=== PATIENT | female | born 1950 | race Caucasian/White ===

== ENCOUNTER → 2016-06-22 | Outpatient (CLI) | payer MEDICARE ==
[~2016-06-22] MED LIST: ATOR40TA PO; CALC500T47 PO; CHOL10002 PO; FLUO40CA9 PO; GABA400C PO; LISI-468 PO; MAGN300C PO; MELO15TA6 PO; MULT-26 PO; NIFE60TA2 PO; OMEP20CA9 PO; SILD20TA PO
== END | disposition home or self-care (01) ==
LOC: CFH 10:32
PROVIDERS: ATTEND Internal Medicine
DX: K76.0 Fatty (change of) liver, not elsewhere classified (principal); R94.5 Abnormal results of liver function studies
CPT/HCPCS: 76705

== ENCOUNTER → 2016-11-28 | Outpatient (CLI) | payer MEDICARE ==
[~2016-11-28] MED LIST changes: -CALC500T47 PO; +CALC500T51 PO
== END | disposition home or self-care (01) ==
LOC: CVU 11:22
PROVIDERS: ATTEND Internal Medicine Cardiovascular Disease
DX: I07.1 Rheumatic tricuspid insufficiency (principal); I31.3 Pericardial effusion (noninflammatory); I10 Essential (primary) hypertension
CPT/HCPCS: 93306; 94060; 94726; 94729

== ENCOUNTER → 2017-03-01 | Outpatient (CLI) | payer MEDICARE | END | disposition home or self-care (01) | LOC: CFH 09:48 | PROVIDERS: ATTEND Internal Medicine | DX: Z12.31 Encounter for screening mammogram for malignant neoplasm of breast (principal) | CPT/HCPCS: G0202 ==

== ENCOUNTER → 2017-04-24 | Outpatient (CLI) | payer MEDICARE | LOC: CFH 10:44 | PROVIDERS: ATTEND Internal Medicine | DX: Z13.820 Encounter for screening for osteoporosis (principal); M85.88 Other specified disorders of bone density and structure, other site; N95.1 Menopausal and female climacteric states | CPT/HCPCS: 77080 ==

== ENCOUNTER → 2018-03-20 | Outpatient (CLI) | payer MEDICARE | END | disposition home or self-care (01) | LOC: CFH 09:41 | PROVIDERS: ATTEND Internal Medicine Cardiovascular Disease | DX: I34.8 Other nonrheumatic mitral valve disorders (principal); I31.3 Pericardial effusion (noninflammatory); E78.5 Hyperlipidemia, unspecified; I10 Essential (primary) hypertension | CPT/HCPCS: 93306 ==

== ENCOUNTER → 2018-05-21 | Outpatient (CLI) | payer MEDICARE | END | disposition home or self-care (01) | LOC: CFH 11:04 | PROVIDERS: ATTEND Internal Medicine | DX: Z12.31 Encounter for screening mammogram for malignant neoplasm of breast (principal) | CPT/HCPCS: 77067 ==

== ENCOUNTER 2018-08-02 10:55 | Outpatient (CLI) | payer MEDICARE | END 2018-08-02 23:59 | disposition home or self-care (01) | LOC: CFH 10:55 | PROVIDERS: ATTEND Internal Medicine Rheumatology | DX: M17.12 Unilateral primary osteoarthritis, left knee (principal); M25.511 Pain in right shoulder; M34.9 Systemic sclerosis, unspecified ==

== ENCOUNTER 2018-08-20 09:57 | Outpatient (CLI) | payer MEDICARE | END 2018-08-20 23:59 | disposition home or self-care (01) | LOC: CFH 09:57 | PROVIDERS: ATTEND Internal Medicine Rheumatology | DX: J84.9 Interstitial pulmonary disease, unspecified (principal) | CPT/HCPCS: 71250 ==

== ENCOUNTER 2018-08-21 14:09 | Outpatient (CLI) | payer MEDICARE | END 2018-08-21 23:59 | disposition home or self-care (01) | LOC: CARD 14:09 | PROVIDERS: ATTEND Internal Medicine Rheumatology | DX: J84.9 Interstitial pulmonary disease, unspecified (principal); I27.0 Primary pulmonary hypertension | CPT/HCPCS: 94060; 94726; 94729 ==

== ENCOUNTER 2019-08-26 09:44 | Outpatient (CLI) | payer MEDICARE | END 2019-08-26 23:59 | disposition home or self-care (01) | LOC: CFH 09:44 | PROVIDERS: ATTEND Internal Medicine Rheumatology | DX: M81.0 Age-related osteoporosis without current pathological fracture (principal); M85.89 Other specified disorders of bone density and structure, multiple sites | CPT/HCPCS: 77080 ==

== ENCOUNTER 2019-09-22 12:23 | Outpatient (CLI) | payer MEDICARE | END 2019-09-22 23:59 | disposition home or self-care (01) | LOC: CARD 12:23 | PROVIDERS: ATTEND Internal Medicine Rheumatology | DX: M34.9 Systemic sclerosis, unspecified (principal); J84.9 Interstitial pulmonary disease, unspecified | CPT/HCPCS: 94060; 94726; 94729 ==

== ENCOUNTER → 2020-03-25 | Outpatient (CLI) | payer MEDICARE | END | disposition home or self-care (01) | LOC: CFH 14:30 | PROVIDERS: ATTEND Internal Medicine Cardiovascular Disease | DX: I08.1 Rheumatic disorders of both mitral and tricuspid valves (principal); I11.9 Hypertensive heart disease without heart failure | CPT/HCPCS: 93306 ==

== ENCOUNTER → 2020-09-03 | Outpatient (CLI) | payer MEDICARE | END | disposition home or self-care (01) | LOC: CFH 08:13 | PROVIDERS: ATTEND Internal Medicine Rheumatology | DX: K22.8 Other specified diseases of esophagus (principal); M34.9 Systemic sclerosis, unspecified; J84.9 Interstitial pulmonary disease, unspecified | CPT/HCPCS: 71250 ==

== ENCOUNTER 2020-11-05 11:08 | Outpatient (CLI) | payer MEDICARE ==
[2020-11-05] MEDS ORDERED: VIT1CAPS42 PO (11:50)
[2020-11-05] MEDS ORDERED: LOSA25TA25 PO (11:50)
[2020-11-05 12:16] LABS: BASOPHILS % (AUTO) 1 % (0-1); EOSINOPHILS % (AUTO) 2 % (1-7); LYMPHOCYTES % (AUTO) 21 % (22-44); MEAN CORPUSCULAR HEMOGLOBIN 31.3 pg (27.0-34.8); MEAN CORPUSCULAR HGB CONC 33.4 g/dL (32.4-35.8); MEAN PLATELET VOLUME 8.3 fL (7.4-10.4); MONOCYTES % (AUTO) 8 % (2-9); NEUTROPHILS % (AUTO) 68 % (42-75); PLATELET COUNT 320 x10^3/uL (130-400); RED BLOOD COUNT 4.62 x10^6/uL (3.82-5.3); RED CELL DISTRIBUTION WIDTH 14.8 % (9.6-15.2)
[2020-11-05 12:16] LABS: MICROSCOPIC NOT IND
[2020-11-05 12:26] LABS: ALANINE AMINOTRANSFERASE 23 U/L (12-78); ANION GAP 9 mmol/L (5-15); CHLORIDE 105 mmol/L (98-107); PROTHROMBIN TIME 10.7 Seconds (9.6-11.5)
[2020-11-05 12:28] LABS: ALKALINE PHOSPHATASE 81 U/L (45-117); BILIRUBIN,TOTAL 0.6 mg/dL (0.2-1.0); TOTAL PROTEIN 8.4 g/dL (6.4-8.2)
== END 2020-11-05 23:59 | disposition home or self-care (01) ==
LOC: STAR 11:08
PROVIDERS: ATTEND Neurological Surgery
DX: Z01.812 Encounter for preprocedural laboratory examination (principal); Z01.810 Encounter for preprocedural cardiovascular examination; Z01.811 Encounter for preprocedural respiratory examination; M47.816 Spondylosis without myelopathy or radiculopathy, lumbar region; M43.16 Spondylolisthesis, lumbar region; M53.86 Other specified dorsopathies, lumbar region; I45.10 Unspecified right bundle-branch block; R79.1 Abnormal coagulation profile; R82.90 Unspecified abnormal findings in urine; R94.31 Abnormal electrocardiogram [ECG] [EKG]
CPT/HCPCS: 36415; 71046; 72110; 80053; 81003; 85025; 85610; 85730; 93005

== ENCOUNTER 2020-11-19 06:55 | Inpatient (IN) | payer MEDICARE ==
[2020-11-05 11:30] VITALS: BP 134/84
[~2020-11-19] VITALS: Ht 172.7 cm; Wt 112.0 kg
[~2020-11-19 06:55] MED LIST changes: +LOSA25TA25 PO; +VIT1CAPS42 PO
[2020-11-19] MEDS ORDERED: LACTATED RINGERS 1,000 ML IV SCH (07:30)
[2020-11-19] MEDS ORDERED: CHLORHEXIDINE 15 ML UDC PO ONE (07:30)
[2020-11-19] MEDS ORDERED: CHLORHEXIDINE 15 ML UDC ONE (07:32)
[2020-11-19] MEDS ORDERED: EPINEPHRINE 1 MG/ML, 1ML ONE (08:55)
[2020-11-19] MEDS ORDERED: VANCOMYCIN 1,000 MG ONE (08:55)
[2020-11-19] MEDS ORDERED: BUPIVACAINE/PF 0.5% ONE (08:55)
[2020-11-19] MEDS ORDERED: FENTANYL PF 100 MCG/2ML ONE ×2 (09:08→10:53)
[2020-11-19] MEDS ORDERED: MIDAZOLAM 1 MG/ML, 2ML ONE (09:08)
[2020-11-19] MEDS ORDERED: ROCURONIUM 10MG/ML,5ML ONE (09:14)
[2020-11-19] MEDS ORDERED: PROPOFOL 50 ML ONE ×2 (09:14→10:03)
[2020-11-19] MEDS ORDERED: PROPOFOL 10 MG/ML, 20ML ONE (09:14)
[2020-11-19] MEDS ORDERED: ONDANSETRON 2MG/ML, 2ML ONE (09:14)
[2020-11-19] MEDS ORDERED: CEFAZOLIN 1,000 MG ONE (09:14)
[2020-11-19] MEDS ORDERED: SUCCINYLCHOLINE 20 MG/ML, 10ML ONE (09:14)
[2020-11-19] MEDS ORDERED: GLYCOPYRROLATE 0.2MG/1ML, 5ML ONE (09:14)
[2020-11-19] MEDS ORDERED: DEXAMETHASONE 4 MG/ML, 1ML ONE (09:14)
[2020-11-19] MEDS ORDERED: NEOSTIGMINE 1 MG/ML, 10ML ONE (09:14)
[2020-11-19] MEDS ORDERED: OXYcodone 5 MG/5 ML ORAL.SOL UDC PO PRN (10:00)
[2020-11-19] MEDS ORDERED: LORazepam 2 MG/ML, 1ML IVPush PRN (10:00)
[2020-11-19] MEDS ORDERED: METHOCARBAMOL 1,000 MG in DEXTROSE 5% 100 ML IV PRN (10:00)
[2020-11-19] MEDS ORDERED: ACETAMINOPHEN 325 MG TABLET PO PRN (10:00)
[2020-11-19] MEDS ORDERED: FENTANYL PF 100 MCG/2ML IV PRN (10:00)
[2020-11-19] MEDS ORDERED: PROMETHAZINE 25 MG/ML, 1ML IVPush PRN (10:00)
[2020-11-19] MEDS ORDERED: ONDANSETRON 2MG/ML, 2ML IVPush PRN ×2 (10:00→11:30)
[2020-11-19] MEDS ORDERED: HYDROcodone/APAP 7.5-325MG/15ML UDC PO PRN (10:00)
[2020-11-19] MEDS ORDERED: HYDROmorphone 1 MG/ML, 1ML INJ IVPush PRN (10:00)
[2020-11-19] MEDS ORDERED: MEPERIDINE/PF 25MG/0.5ML IVPush PRN (10:00)
[2020-11-19] MEDS ORDERED: OXYcodone 5 MG/5 ML ORAL.SOL UDC ONE (11:23)
[2020-11-19] MEDS ORDERED: ACETAMINOPHEN 650 MG/20.3 ML UDC ONE (11:24)
[2020-11-19] MEDS ORDERED: OXYcodone/APAP 5/325MG TABLET PO PRN (11:30)
[2020-11-19] MEDS ORDERED: HYDROcodone/APAP 10/325 MG TABLET PO PRN (11:30)
[2020-11-19] MEDS ORDERED: LABETALOL 5MG/ML, 20ML IVPush PRN (11:30)
[2020-11-19] MEDS ORDERED: morphine SULFATE 10 MG/ML, 1ML IVPush PRN (11:30)
[2020-11-19] MEDS ORDERED: PHARMACY MAY ADJ FOR RENAL FX MC PRN (11:30)
[2020-11-19] MEDS ORDERED: SENNA/DOCUSATE TABLET PO PRN (11:30)
[2020-11-19] MEDS ORDERED: DIPHENHYDRAMINE 50 MG/ML, 1ML IVPush PRN (11:30)
[2020-11-19] MEDS ORDERED: METHOCARBAMOL 1,000 MG in DEXTROSE 5% 100 ML IV ONE (11:30)
[2020-11-19 12:39] VITALS: BP 129/67
[2020-11-19] MEDS ORDERED: MAGNESIUM HYDROXIDE 8%, 30ML UDC PO PRN (13:00)
[2020-11-19] MEDS ORDERED: NS + 20MEQ KCL 1,000 ML IV SCH (13:00)
[2020-11-19] MEDS: SILDENAFIL 20 MG TABLET PO SCH (16:00)
[2020-11-19] MEDS: CEFAZOLIN PMX 1GM/50ML 50 ML IVPB SCH (18:08)
[2020-11-19] MEDS: OMEPRAZOLE 20 MG CAPSULE.DR PO SCH (18:09)
[2020-11-19] MEDS ORDERED: METHOCARBAMOL 750 MG TABLET PO PRN (19:30)
[2020-11-19] MEDS ORDERED: CYCLOBENZAPRINE 10 MG TABLET PO PRN (19:30)
[2020-11-19 20:03] VITALS: BP 118/76
[2020-11-19] MEDS: CALCIUM CARBONATE 500 MG TAB.CHEW PO SCH (20:41)
[2020-11-19] MEDS: HYDROcodone/APAP 5/325 TABLET PO PRN (20:41)
[2020-11-19] MEDS: SODIUM CHLORIDE FLUSH 10ML SYR IVF SCH (21:00)
[2020-11-20 00:21] VITALS: BP 112/68
[2020-11-20] MEDS: CEFAZOLIN PMX 1GM/50ML 50 ML IVPB SCH ×2 (01:42→18:15)
[2020-11-20] MEDS: HYDROcodone/APAP 5/325 TABLET PO PRN (01:46)
[2020-11-20] MEDS ORDERED: VANCOMYCIN 1,000 MG ONE (05:52)
[2020-11-20] MEDS ORDERED: EPINEPHRINE 1 MG/ML, 1ML ONE (05:52)
[2020-11-20] MEDS ORDERED: BUPIVACAINE/PF 0.5% ONE (05:52)
[2020-11-20 06:47] LABS: ANION GAP 6 mmol/L (5-15); CALCIUM 8.3 mg/dL (8.5-10.1); CHLORIDE 108 mmol/L (98-107)
[2020-11-20 06:50] LABS: CREATININE 0.79 mg/dL (0.55-1.02)
[2020-11-20 06:52] LABS: BASOPHILS % (AUTO) 0 % (0-1); EOSINOPHILS % (AUTO) 0 % (1-7); LYMPHOCYTES % (AUTO) 15 % (22-44); MEAN CORPUSCULAR HEMOGLOBIN 31.9 pg (27.0-34.8); MEAN CORPUSCULAR HGB CONC 33.7 g/dL (32.4-35.8); MEAN PLATELET VOLUME 8.5 fL (7.4-10.4); MONOCYTES % (AUTO) 10 % (2-9); NEUTROPHILS % (AUTO) 75 % (42-75); PLATELET COUNT 222 x10^3/uL (130-400); RED BLOOD COUNT 4.11 x10^6/uL (3.82-5.3); RED CELL DISTRIBUTION WIDTH 14.6 % (9.6-15.2)
[2020-11-20] MEDS ORDERED: HYDROmorphone 1 MG/ML, 1ML INJ IVPush PRN (07:00)
[2020-11-20] MEDS ORDERED: hydrALAzine 20 MG/ML, 1ML IV PRN (07:00)
[2020-11-20] MEDS ORDERED: PROMETHAZINE 25 MG/ML, 1ML IVPush PRN (07:00)
[2020-11-20] MEDS ORDERED: ACETAMINOPHEN 325 MG TABLET PO PRN (07:00)
[2020-11-20] MEDS ORDERED: ONDANSETRON 2MG/ML, 2ML IVPush PRN (07:00)
[2020-11-20] MEDS ORDERED: OXYcodone 5 MG/5 ML ORAL.SOL UDC PO PRN (07:00)
[2020-11-20] MEDS ORDERED: EPHEDRINE 50 MG/ML, 1ML IVPush PRN (07:00)
[2020-11-20] MEDS ORDERED: LABETALOL 5MG/ML, 20ML IV PRN (07:00)
[2020-11-20 07:33] VITALS: BP 107/59
[2020-11-20] MEDS: ATORVASTATIN 40 MG TABLET PO SCH (08:28)
[2020-11-20] MEDS: OMEPRAZOLE 20 MG CAPSULE.DR PO SCH ×2 (08:28→16:06)
[2020-11-20] MEDS: FLUOXETINE HCL 20 MG CAPSULE PO SCH (08:28)
[2020-11-20] MEDS: GABAPENTIN 400 MG CAPSULE PO SCH (08:28)
[2020-11-20] MEDS: SODIUM CHLORIDE FLUSH 10ML SYR IVF SCH ×2 (08:29→21:00)
[2020-11-20] MEDS: LOSARTAN 25MG TABLET PO SCH (08:32)
[2020-11-20] MEDS: niFEDipine ER 60 MG TABLET.ER PO SCH (08:32)
[2020-11-20] MEDS: SILDENAFIL 20 MG TABLET PO SCH ×4 (08:33→20:43)
[2020-11-20] MEDS: CALCIUM CARBONATE 500 MG TAB.CHEW PO SCH ×2 (08:33→20:44)
[2020-11-20] MEDS ORDERED: MULTIVITAMIN 1 TABLET PO SCH (09:00)
[2020-11-20] MEDS ORDERED: FENTANYL PF 250 MCG/5ML ONE (09:37)
[2020-11-20] MEDS ORDERED: PROPOFOL 50 ML ONE ×2 (09:39→10:52)
[2020-11-20] MEDS ORDERED: BUPIVACAINE LIPOSOME/PF 10ML INFIL ONE (10:10)
[2020-11-20] MEDS ORDERED: EPHEDRINE 50 MG/ML, 1ML ONE (10:27)
[2020-11-20] MEDS ORDERED: SUCCINYLCHOLINE 20 MG/ML, 10ML ONE (10:28)
[2020-11-20] MEDS ORDERED: CEFAZOLIN 1,000 MG ONE (10:28)
[2020-11-20] MEDS ORDERED: DEXAMETHASONE 4 MG/ML, 1ML ONE (10:28)
[2020-11-20] MEDS ORDERED: LIDOCAINE-MPF 2% ,5ML ONE (10:28)
[2020-11-20] MEDS ORDERED: SODIUM CHLORIDE 0.9% PF 10ML ONE (10:28)
[2020-11-20] MEDS ORDERED: ONDANSETRON 2MG/ML, 2ML ONE (10:28)
[2020-11-20] MEDS ORDERED: PROPOFOL 10 MG/ML, 20ML ONE (10:28)
[2020-11-20] MEDS ORDERED: PHENYLEPHRINE 10 MG/ML ONE (10:32)
[2020-11-20] MEDS ORDERED: VANCOMYCIN 1,000 MG IM ONE (10:45)
[2020-11-20] MEDS ORDERED: FENTANYL PF 100 MCG/2ML ONE ×2 (11:08→11:46)
[2020-11-20] MEDS ORDERED: OXYcodone 5 MG/5 ML ORAL.SOL UDC ONE (11:46)
[2020-11-20] MEDS: FENTANYL PF 100 MCG/2ML IV PRN ×2 (11:50→12:00)
[2020-11-20] MEDS ORDERED: METHOCARBAMOL 750 MG TABLET ONE (12:09)
[2020-11-20] MEDS ORDERED: HYDROmorphone 2 MG/ML, 1ML ONE (12:14)
[2020-11-20] MEDS ORDERED: BISACODYL 10 MG SUPP PR PRN (15:30)
[2020-11-20] MEDS ORDERED: OXYcodone IR 5MG TABLET PO PRN (15:30)
[2020-11-20] MEDS ORDERED: DIPHENHYDRAMINE 25 MG CAPSULE PO PRN (15:30)
[2020-11-20] MEDS ORDERED: ONDANSETRON 2MG/ML, 2ML IV PRN (15:30)
[2020-11-20] MEDS ORDERED: PROMETHAZINE 25 MG/ML, 1ML IM PRN (15:30)
[2020-11-20] MEDS ORDERED: MAGNESIUM HYDROXIDE 8%, 30ML UDC PO PRN (15:30)
[2020-11-20] MEDS ORDERED: HYDROmorphone 2 MG/ML, 1ML IVPush PRN (15:30)
[2020-11-20] MEDS: HYDROcodone/APAP 10/325 MG TABLET PO PRN ×2 (16:07→20:44)
[2020-11-20] MEDS: D5%-0.9% NACL+KCL 20MEQ 1,000 ML IV SCH (16:47)
[2020-11-20 19:52] VITALS: BP 120/66
[2020-11-21] VITALS (8 sets, daily range): BP systolic 66–125; BP diastolic 37–71
[2020-11-21] MEDS: CEFAZOLIN PMX 1GM/50ML 50 ML IVPB SCH ×3 (01:57→17:51)
[2020-11-21] MEDS: D5%-0.9% NACL+KCL 20MEQ 1,000 ML IV SCH ×3 (03:00→21:58)
[2020-11-21 03:58] LABS: BASOPHILS % (AUTO) 0 % (0-1); EOSINOPHILS % (AUTO) 0 % (1-7); LYMPHOCYTES % (AUTO) 14 % (22-44); MEAN CORPUSCULAR HEMOGLOBIN 31.4 pg (27.0-34.8); MEAN CORPUSCULAR HGB CONC 33.1 g/dL (32.4-35.8); MEAN PLATELET VOLUME 8.4 fL (7.4-10.4); MONOCYTES % (AUTO) 11 % (2-9); NEUTROPHILS % (AUTO) 75 % (42-75); PLATELET COUNT 209 x10^3/uL (130-400); RED BLOOD COUNT 3.77 x10^6/uL (3.82-5.3); RED CELL DISTRIBUTION WIDTH 14.8 % (9.6-15.2)
[2020-11-21 04:05] LABS: ANION GAP 3 mmol/L (5-15); CALCIUM 8.5 mg/dL (8.5-10.1); CHLORIDE 107 mmol/L (98-107)
[2020-11-21 04:06] LABS: CREATININE 0.78 mg/dL (0.55-1.02)
[2020-11-21] MEDS: HYDROcodone/APAP 10/325 MG TABLET PO PRN ×3 (05:58→17:06)
[2020-11-21] MEDS: GABAPENTIN 400 MG CAPSULE PO SCH (09:32)
[2020-11-21] MEDS: OMEPRAZOLE 20 MG CAPSULE.DR PO SCH ×2 (09:32→17:06)
[2020-11-21] MEDS: SILDENAFIL 20 MG TABLET PO SCH ×3 (09:32→21:00)
[2020-11-21] MEDS: niFEDipine ER 60 MG TABLET.ER PO SCH (09:32)
[2020-11-21] MEDS: ATORVASTATIN 40 MG TABLET PO SCH (09:32)
[2020-11-21] MEDS: SENNA/DOCUSATE TABLET PO SCH (09:33)
[2020-11-21] MEDS: FLUOXETINE HCL 20 MG CAPSULE PO SCH (09:33)
[2020-11-21] MEDS: LOSARTAN 25MG TABLET PO SCH (09:33)
[2020-11-21] MEDS: SODIUM CHLORIDE FLUSH 10ML SYR IVF SCH ×2 (09:33→21:00)
[2020-11-21] MEDS: CALCIUM CARBONATE 500 MG TAB.CHEW PO SCH ×2 (09:33→20:41)
[2020-11-22] MEDS ORDERED: SILDENAFIL 20 MG TABLET PO SCH ×2 (01:00→09:00)
[2020-11-22 01:51] VITALS: BP 101/65
[2020-11-22] MEDS: CEFAZOLIN PMX 1GM/50ML 50 ML IVPB SCH ×2 (01:54→10:00)
[2020-11-22] MEDS: HYDROcodone/APAP 10/325 MG TABLET PO PRN ×2 (02:02→09:52)
[2020-11-22 03:02] VITALS: BP 93/59
[2020-11-22 05:35] LABS: BASOPHILS % (AUTO) 1 % (0-1); EOSINOPHILS % (AUTO) 3 % (1-7); LYMPHOCYTES % (AUTO) 23 % (22-44); MEAN CORPUSCULAR HEMOGLOBIN 31.9 pg (27.0-34.8); MEAN PLATELET VOLUME 8.7 fL (7.4-10.4); MONOCYTES % (AUTO) 12 % (2-9); NEUTROPHILS % (AUTO) 62 % (42-75); PLATELET COUNT 185 x10^3/uL (130-400); RED BLOOD COUNT 3.53 x10^6/uL (3.82-5.3); RED CELL DISTRIBUTION WIDTH 14.3 % (9.6-15.2)
[2020-11-22 07:55] VITALS: BP 114/72
[2020-11-22] MEDS: OMEPRAZOLE 20 MG CAPSULE.DR PO SCH (08:00)
[2020-11-22] MEDS ORDERED: HYDR1TAB53 PO (08:00)
[2020-11-22] MEDS ORDERED: CEPH-376 PO (08:00)
[2020-11-22] MEDS ORDERED: CYCL10TA2 PO (08:00)
[2020-11-22] MEDS ORDERED: CEPHALEXIN MC SCH (08:00)
[2020-11-22] MEDS ORDERED: CEFAZOLIN MC SCH (08:00)
[2020-11-22] MEDS: D5%-0.9% NACL+KCL 20MEQ 1,000 ML IV SCH (09:00)
[2020-11-22] MEDS: SODIUM CHLORIDE FLUSH 10ML SYR IVF SCH (09:00)
[2020-11-22] MEDS: CALCIUM CARBONATE 500 MG TAB.CHEW PO SCH (09:44)
[2020-11-22] MEDS: GABAPENTIN 400 MG CAPSULE PO SCH (09:44)
[2020-11-22] MEDS: niFEDipine ER 60 MG TABLET.ER PO SCH (09:44)
[2020-11-22] MEDS: SENNA/DOCUSATE TABLET PO SCH (09:45)
[2020-11-22] MEDS: ATORVASTATIN 40 MG TABLET PO SCH (09:45)
[2020-11-22] MEDS: LOSARTAN 25MG TABLET PO SCH (09:45)
[2020-11-22] MEDS: FLUOXETINE HCL 20 MG CAPSULE PO SCH (09:45)
[2020-11-22] MEDS ORDERED: CEPHALEXIN 500 MG CAPSULE PO SCH (11:00)
== END 2020-11-22 11:35 | disposition home or self-care (01) | DRG 455 ==
LOC: ORIP 06:55 → 4NW 12:26
PROVIDERS: ADMIT Neurological Surgery; ATTEND Neurological Surgery
PROC: 4A11X4G Monitoring of Peripheral Nervous Electrical Activity, Intraoperative, External Approach (ICD-10-PCS; 2020-11-19)
PROC: 0SG00A0 Fusion of Lumbar Vertebral Joint with Interbody Fusion Device, Anterior Approach, Anterior Column, Open Approach (ICD-10-PCS; principal; 2020-11-19 09:30)
PROC: 0SG00K1 Fusion of Lumbar Vertebral Joint with Nonautologous Tissue Substitute, Posterior Approach, Posterior Column, Open Approach (ICD-10-PCS; 2020-11-20)
PROC: 4A11X4G Monitoring of Peripheral Nervous Electrical Activity, Intraoperative, External Approach (ICD-10-PCS; 2020-11-20)
PROC: 8E0W0CZ Robotic Assisted Procedure of Trunk Region, Open Approach (ICD-10-PCS; 2020-11-20)
DX: M48.062 Spinal stenosis, lumbar region with neurogenic claudication (principal); M43.16 Spondylolisthesis, lumbar region; M47.26 Other spondylosis with radiculopathy, lumbar region; M51.16 Intervertebral disc disorders with radiculopathy, lumbar region
CPT/HCPCS: 36415; 72100; 72131; 80048; 85025; 95938; 95941; C1713; C1729; C1767; C1776; G0378; J0171; J0690; J1100; J1170; J2250; J2405; J2704; J2710; J3010; J3370; J3480; C1760; C1762; C1769; J0330; J2370; J2800; J7120